=== PATIENT | female | born 1960 | race Caucasian/White ===

== ENCOUNTER 2019-03-05 18:47 | Observation (INO) | payer MEDICARE ==
[~2019-03-05] VITALS: Ht 165.1 cm; Wt 89.3 kg
[2019-03-05 19:21] LABS: BASOPHILS % (AUTO) 0.5 % (0.0-5.0); EOSINOPHILS % (AUTO) 1.3 % (0.0-8.0); HEMATOCRIT 39.6 % (36-48); LYMPHOCYTES % (AUTO) 44.8 % (21.0-51.0); MEAN CORPUSCULAR HEMOGLOBIN 30.8 pg (27.0-33.0); MEAN CORPUSCULAR HGB CONC 34.1 g/dL (32.0-36.0); MEAN CORPUSCULAR VOLUME 90.2 fL (79-99); MONOCYTES % (AUTO) 7.3 % (3.0-13.0); NEUTROPHILS % (AUTO) 45.8 % (40.0-77.0); PLATELET COUNT (AUTO) 246 K/uL (130-400); RED BLOOD CELL COUNT(AUTO) 4.39 MIL/uL (4.00-5.50); RED CELL DISTRIBUTION WIDTH 12.2 % (11.0-15.5); WHITE BLOOD COUNT (AUTO) 8.6 K/uL (4.8-10.8)
[2019-03-05 19:26] LABS: CREATININE 0.4 mg/dL (0.5-1.5); POTASSIUM 3.7 mmol/L (3.5-5.1)
[2019-03-05 19:30] LABS: ALBUMIN 3.2 g/dL (3.5-5.0); BILIRUBIN,TOTAL 0.4 mg/dL (0.2-1.0); TOTAL PROTEIN, SERUM 7.4 g/dL (6.0-8.3)
[2019-03-05 19:51] LABS: INR 0.98 (0.85-1.15); PARTIAL THROMBOPLASTIN TIME 25.1 SEC (26.3-35.5); PROTHROMBIN TIME 10.3 SEC (9.6-11.6)
[2019-03-05 20:05] LABS: APPEARANCE,URINE Clear (CLEAR); BILIRUBIN,URINE Negative (NEGATIVE); COLOR,URINE Yellow (YELLOW); GLUCOSE, URINE (UA) Negative (NEGATIVE); KETONES,URINE Negative (NEGATIVE); LEUKOCYTE ESTERASE ,URINE Negative (NEGATIVE); NITRATE,URINE Negative (NEGATIVE); OCCULT BLOOD,URINE Negative (NEGATIVE); PH,URINE 7.5 (5.0-8.0); PROTEIN,URINE Negative (NEGATIVE)
[2019-03-05 20:12] LABS: AMPHET/METH SCREEN,URINE NEGATIVE (NEGATIVE); BARBITURATE SCREEN, URINE NEGATIVE (NEGATIVE); BENZODIAZEPINES SCREEN,URINE NEGATIVE (NEGATIVE); CANNABINOID SCREEN,URINE NEGATIVE (NEGATIVE); COCAINE SCREEN,URINE NEGATIVE (NEGATIVE); OPIATE SCREEN,URINE NEGATIVE (NEGATIVE); PHENCYCLIDINE SCREEN,URINE NEGATIVE (NEGATIVE)
[2019-03-05] MEDS ORDERED: DiphenhydrAMINE HCL 50 MG/ML VIAL ONE (21:35)
[2019-03-05] MEDS ORDERED: SODIUM CHLORIDE 0.9% 500ML 500 ML IV ONE (21:36)
[2019-03-05] MEDS ORDERED: PROCHLORPERAZINE EDISYLATE 10 MG/2 ML VIAL ONE (21:36)
[2019-03-05] MEDS ORDERED: LORAZEPAM 2 MG/ML 1 ML VIAL ONE (22:09)
[2019-03-06] MEDS ORDERED: NITROGLYCERIN 0.4 MG SL TAB SL PRN (00:30)
[2019-03-06] MEDS ORDERED: ONDANSETRON HCL 4 MG/2 ML VIAL IVP PRN (00:30)
[2019-03-06 01:30] VITALS: BP 109/64
[2019-03-06] MEDS ORDERED: LEVO125T95 PO (01:34)
--- NOTE | 2019-03-06 01:55 | NUR ---
ADMIT PT ADMITTED TO ROOM 425, AAOX3. DENIES ANY PAINS AT THIS TIME BUT CLAIMS OF FEELING GENERALIZED WEAKNESS. ABLE TO AMBULATE WITHOUT ASSIST. ADMISSION CARE DONE. ADMITTING DATA BASE COMPLETED. DIE FITTER IN TO DRAW BLOOD. V/S MONITORED, STABLE. TELE MONITOR PLACED ON PT. SCD'S APPLIED TO BLE. PENDING EKG FROM ER DONE AND TRANSMITTED. ORIENTED TO ROOM AND UNIT. IN FOR MORE CARE AND MANAGEMENT. Addendum: 03/06/19 at 0159 by RAJAN DANIEL RN RN Amended: Links added.
[2019-03-06 04:28] VITALS: BP 114/63
--- NOTE | 2019-03-06 06:00 | NUR ---
ROUNDS PT STILL FAIRLY ASLEEP. NO DISTRESS NOTED. KEPT UNDISTURBED FOR NOW. FOR MORE CARE AND MANAGEMENT.
[2019-03-06 06:46] LABS: BASOPHILS % (AUTO) 0.4 % (0.0-5.0); EOSINOPHILS % (AUTO) 2.1 % (0.0-8.0); HEMATOCRIT 40.5 % (36-48); LYMPHOCYTES % (AUTO) 41.3 % (21.0-51.0); MEAN CORPUSCULAR HEMOGLOBIN 30.4 pg (27.0-33.0); MEAN CORPUSCULAR HGB CONC 33.3 g/dL (32.0-36.0); MEAN CORPUSCULAR VOLUME 91.2 fL (79-99); MONOCYTES % (AUTO) 6.2 % (3.0-13.0); NEUTROPHILS % (AUTO) 49.7 % (40.0-77.0); PLATELET COUNT (AUTO) 247 K/uL (130-400); RED BLOOD CELL COUNT(AUTO) 4.44 MIL/uL (4.00-5.50); RED CELL DISTRIBUTION WIDTH 12.3 % (11.0-15.5)
[2019-03-06 06:57] LABS: HEMOGLOBIN A1C 6.8 % (4.0-6.0)
[2019-03-06 07:00] VITALS: BP 112/72
[2019-03-06 07:12] LABS: ALBUMIN 3.1 g/dL (3.5-5.0); BILIRUBIN,TOTAL 0.5 mg/dL (0.2-1.0); CREATININE 0.9 mg/dL (0.5-1.5); POTASSIUM 3.8 mmol/L (3.5-5.1); THYROID STIMULATING HORMONE 7.09 uIU/mL (0.36-3.74); TOTAL PROTEIN, SERUM 7.1 g/dL (6.0-8.3)
[2019-03-06] MEDS ORDERED: PANTOPRAZOLE SODIUM 40 MG TABLET.DR PO SCH (08:30)
[2019-03-06] MEDS ORDERED: ASPIRIN 81MG TAB.CHEW PO SCH (09:00)
[2019-03-06] MEDS ORDERED: FAMOTIDINE 20MG TAB 20 MG TAB PO SCH (09:00)
--- NOTE | 2019-03-06 11:29 | NUR ---
DISCHARGE INSTRUCTIONS GIVEN TO PATIENT. PATIENT STATES SHE WILL MAKE HER OWN FOLLOW UP APPOINTMENT WITH HER PCP IN 3-5 DAYS IN [place]. NO NEW RX. NO C/O CHEST PAIN, DENIES MIGRAINE AT THIS TIME. IV REMOVED, TELE REMOVED. PATIENT TO BE TRANSPORTED HOME BY DAUGHTER
--- NOTE | 2019-03-06 11:53 | NUR ---
DC PLAN PATIENT DISCHARGED, ALREADY GONE. NO NEEDS VERBALIZED BY NURSING STAFF. Addendum: 03/06/19 at 1155 by KOURTNEY VILLANUEVA RN CM Amended: Links added.
== END 2019-03-06 11:48 | disposition home or self-care (01) ==
LOC: EDH 18:47 → EDHIP 03-06 00:15 → 4DH 03-06 01:23
PROVIDERS: ADMIT Hospitalist; ATTEND Hospitalist
DX: R07.89 Other chest pain (principal); G43.809 Other migraine, not intractable, without status migrainosus; E03.9 Hypothyroidism, unspecified; R20.0 Anesthesia of skin; R20.2 Paresthesia of skin; Z79.899 Other long term (current) drug therapy
CPT/HCPCS: 36415 ×2; 70450; 71045; 80053 ×2; 80061; 80305; 81003; 82550; 83036; 83721; 84443; 84484 ×3; 85025 ×2; 85610; 85730; 93005 ×2; 99284; G0378 ×11; J0780; J1200; J2060; J7040

== ENCOUNTER 2023-05-27 07:22 | Day surgery (SDC) | payer OTHER ==
[2023-05-27] VITALS (12 sets, daily range): BP systolic 112–130; BP diastolic 56–77; PULSE 71–89; RESP 14–16
[~2023-05-27] VITALS: Ht 165.1 cm; Wt 81.2 kg
[~2023-05-27 07:22] MED LIST: LEVO88CA4 PO; PROP60TA20 PO
[2023-05-27] MEDS: 0.9%NACL 1000ML 1,000 ML IV ONE (07:59)
[2023-05-27] MEDS ORDERED: PROPOFOL 10 MG/ML 20ML VIAL IV ONE ×2 (09:33)
== END 2023-05-27 11:20 | disposition home or self-care (01) ==
LOC: ENDO 07:22 → DAH 07:22 → ENDO 11:20
PROVIDERS: ATTEND Internal Medicine Gastroenterology
DX: R19.7 Diarrhea, unspecified (principal); R13.10 Dysphagia, unspecified; R19.4 Change in bowel habit; K63.5 Polyp of colon; R10.13 Epigastric pain; K22.2 Esophageal obstruction; R14.2 Eructation; K44.9 Diaphragmatic hernia without obstruction or gangrene; K31.89 Other diseases of stomach and duodenum; J45.909 Unspecified asthma, uncomplicated; E03.9 Hypothyroidism, unspecified; F41.9 Anxiety disorder, unspecified; F32.A Depression, unspecified; M19.90 Unspecified osteoarthritis, unspecified site; M81.0 Age-related osteoporosis without current pathological fracture; Z98.891 History of uterine scar from previous surgery; Z72.89 Other problems related to lifestyle; Z98.890 Other specified postprocedural states; Z86.010 Personal history of colon polyps; Z79.01 Long term (current) use of anticoagulants; Z79.899 Other long term (current) drug therapy
CPT/HCPCS: 43249; 45385; 43239; 45380; J7030 ×2; J2704 ×2; C1726; A4620; A4215; A4223; A4657; A7002; A4222; A4221; A4663; A4606; J3490